=== PATIENT | male | born 1965 | race Caucasian/White ===

== ENCOUNTER 2022-08-30 07:59 | Emergency (ER) | payer MEDICARE, MEDICAID, SELFPAY ==
--- NOTE | ~2022-08-30 | XR_ITS ---
XR knee RT min 4V 08/30/2022 08:24 Indication: Right knee pain after twisting injury Procedure: 4 views right knee Comparison: No prior studies for comparison. Findings: There are changes of ACL reconstruction. Small knee effusion. No acute fracture or traumati c malalignment. There is mild patellofemoral compartment osteoarthritis involving the lateral facet. Impression: 1: No acute fracture. 2: Small knee effusion. Reviewed, dictated and finalized at location B. Impression: 1: No acute fracture. 2: Small knee effusion.
[2022-08-30 08:05] VITALS: BP 151/84; PULSE 66; RESP 18; TEMP 36.4; O2SAT 100
--- NOTE | 2022-08-30 09:15 | ED.LOWEXIN ---
HPI - Extremity Injury (Lower) General Chief Complaint: Extremity Injury, Lower Stated Complaint: right leg pain Time Seen by Provider: 08/30/22 08:15 History of Present Illness HPI Narrative: Patient is a 57-year-old male who presents ER with right knee pain. Suffered an injury 3 days ago that caused him to feel a pop in his knee but then felt a second pop yesterday while working on his pool. Denies direct trauma to the knee. No numbness or tingling. Has pain with ambulation. Reports mild swelling. Symptoms are worse with flexion and extension. Related Data Allergies Allergy/AdvReac Type Severity Reaction Status Date / Time No Known Allergies Allergy Verified 08/30/22 08:07 Review of Systems Constitutional: Constitutional: Denies chills and Denies fever(s) Musculoskeletal: Musculoskeletal: Denies myalgias, Reports arthralgias, Reports joint swelling and Denies muscle cramps Integumentary/Breasts: Skin/Breast: Denies pruritus and Denies rash Neurologic: Denies focal weakness and Denies numbness PMFSH Past Medical History Medical History (Updated 08/30/22 @ 09:19 by Joe Jimenez MD) Healthy adult male Surgical History Surgical History (Updated 08/30/22 @ 09:17 by Joe Jimenez MD) No pertinent past surgical history Exam Narrative: GENERAL: Well-appearing, well-nourished, and in no acute distress. HEAD: Normocephalic, atraumatic. EXTREMITIES: Focused exam of the right lower extremity reveals normal range of motion of the right knee with both flexion and extension. Normal varus and valgus stress testing. Negative anterior drawer. Minimal effusion. No tenderness along the anterior joint line or patella. SKIN: Warm, dry, no rash. NEURO: Alert and oriented x3. PSYCH: Normal mood and affect. Course Course Emergency Course: Patient feels he needs some crutches for bearing weight. No redness or swelling to the joint that would indicate infection. Imaging with small effusion. Sean wrap applied. Will treat with anti-inflammatories for home. Recommend follow-up with PCP or orthopedic surgery if symptoms do not improve as he may need further evaluation for meniscal injury. Vital Signs Vital signs: Vital Signs Temperature 97.6 F 08/30/22 08:05 Pulse Rate 66 08/30/22 08:05 Respiratory Rate 18 08/30/22 08:05 Blood Pressure 151/84 H 08/30/22 08:05 Pulse Oximetry 100 08/30/22 08:05 Oxygen Delivery Room Air 08/30/22 08:05 Temperature 97.6 F 08/30/22 08:05 Pulse Rate 66 08/30/22 08:05 Respiratory Rate 18 08/30/22 08:05 Blood Pressure 151/84 H 08/30/22 08:05 Pulse Oximetry 100 08/30/22 08:05 Oxygen Delivery Room Air 08/30/22 08:05 MDM - Extremity Injury (Lower) Imaging Data Radiologist's impression: ITS Impressions Knee X-Ray 08/30/22 08:28 Impression: 1: No acute fracture. 2: Small knee effusion. Discharge Plan Discharge Clinical Impression: Knee sprain Patient Disposition: Home, Self-Care Condition: Stable Instructions: Knee Sprain (ED) Additional Instructions: Use the crutches to bear weight as tolerated. Keep your Sean wrap applied to help with any swelling. Take naproxen for pain. Return the ER if you suffer new injury, you have fever over 100.4 ?F, your knee is red and swollen, you have additional concerns. Prescriptions: New naproxen 375 mg tablet 375 mg PO BID Qty: 14 0RF Follow-up/Referrals: UNKNOWN,DOCTOR [Primary Care Provider] - 1 Week
== END 2022-08-30 09:56 | disposition home or self-care (01) ==
PROVIDERS: Emergency Provider Emergency Medicine; PCP Surgery
DX: S83.91XA Sprain of unspecified site of right knee, initial encounter (principal); X58.XXXA Exposure to other specified factors, initial encounter
CPT/HCPCS: 73564; 99283

== ENCOUNTER 2022-10-31 12:54 | Emergency (ER) | payer MEDICARE, MEDICAID, SELFPAY ==
--- NOTE | ~2022-10-31 | CT_ITS ---
EXAMINATION: CT abdomen pelvis w con DATE: 10/31/2022 15:40 INDICATION: Right lower quadrant abdominal pain. TECHNIQUE: Computed tomography (CT) of the abdomen and pelvis was performed with 100 mL Omnipaque 350 intravenous contrast. Automated exposure control and iterative reconstruction technique were employe d. The dose-length product was 366.41 mGy-cm. COMPARISON: None. FINDINGS: The visualized portions of the lung bases demonstrate mild atelectasis. No pleural effusion . The heart size is normal. No pericardial effusion. The liver and gallbladder are normal. Calcificat ions in the spleen are consistent with old granulomatous disease. The pancreas, adrenal glands, and k idneys are normal. There are no dilated loops of bowel. The appendix is normal. There is a right ingu inal hernia containing fat. There are no pathologically enlarged lymph nodes. There is no free intrap eritoneal fluid. Aortic atherosclerosis is noted. There is mild lumbar spondylosis. IMPRESSION: 1. Right inguinal hernia containing fat. Reviewed, dictated and finalized at location E.
[2022-10-31 13:04] VITALS: BP 132/86; PULSE 79; RESP 18; TEMP 36.4; O2SAT 98
[2022-10-31 14:31] VITALS: BP 126/85; PULSE 57; RESP 17; O2SAT 98
[2022-10-31 15:04] LABS: Basophils Percent Auto 0.5 % (0.2-1.2); Eosinophils Absolute Auto 0.1 K/mm3 (0-0.3); Eosinophils Percent Auto 0.6 % (0-4.4); Hematocrit 44.9 % (42.0-52.0); Immature Granulocyte Absolute 0.03 K/mm3 (0.00-0.031); Immature Granulocyte Percent A 0.3 % (0-0.5); Lymphocytes Absolute Auto 3.11 K/mm3 (0.9-3.2); Lymphocytes Percent Auto 35.9 % (18.3-44.2); Mean Corpuscular HGB Conc 33.4 g/dl (32-36); Mean Corpuscular Hemoglobin 30.2 pg (26-34); Mean Corpuscular Volume 90.5 fl (80-100); Mean Platelet Volume 10.6 fl (7.4-10.4); Monocytes Absolute Auto 0.6 K/mm3 (0.1-0.6); Monocytes Percent Auto 6.5 % (2.6-8.5); Neutrophils Absolute Auto 4.9 K/mm3 (1.3-6.7); Neutrophils Percent Auto 56.2 % (45.5-73.1); Platelet Count Result 189 k/mm3 (150-375); Red Blood Count 4.96 M/mm3 (4.6-6.20); Red Cell Distribution Width 12.5 % (11.5-14.5); White Blood Count 8.7 K/mm3 (4.5-10.0)
[2022-10-31 15:06] LABS: Appearance Urine Clear (Clear); Bilirubin Urine Negative (Negative); Blood Urine Negative (Negative); Color Urine Yellow (Yellow); Glucose Urine UA Negative (Negative); Ketones Urine Negative (Negative); Leukocyte Esterase Ur Negative LEU/UL (Negative); Nitrate Urine Negative (Negative); Protein Urine Negative (Negative); Specific Grav Ur 1.013 (1.001-1.035); Urobilinogen Urine 0.2 mg/dL (<2.0)
[2022-10-31 15:08] LABS: Alanine Aminotransferase 39 U/L (6-50); Albumin Level 4.5 g/dL (3.5-5.1); Alkaline Phosphatase 56 U/L (38-126); Anion Gap 5 mmol/L (8-16); Aspartate Amino Transferase 48 U/L (17-59); Bilirubin,Total 0.5 mg/dL (0.2-1.3); Blood Urea Nitrogen 12 mg/dL (9-20); Calcium 8.9 mg/dL (8.4-10.2); Carbon Dioxide 27 mmol/L (22-30); Chloride 105 mmol/L (98-107); Estimated CRCL calculation 98 ml/min; Estimated Glomerular Filt Rate > 60; Glucose 83 mg/dL (65-110); Lipase 1033 U/L (23-300); Sodium 137 mmol/L (137-145)
[2022-10-31 15:23] LABS: Add Urine Microscopic? NO
--- NOTE | 2022-10-31 15:58 | ED.ABDPAIN ---
HPI - Abdominal Pain General Chief Complaint: Abdominal Pain Stated Complaint: R GROIN PAIN X4D Time Seen by Provider: 10/31/22 14:51 History of Present Illness HPI narrative: This is a 57-year-old male with past history of HIV (undetectable viral load and CD4 count in the thousands) and hep C who presents the emergency department complaining of painful right groin mass for the past 4 days. The patient is not sure what may have caused the mass, though it is tender and worsens with cough. He suspects he has a hernia. He is able to pass gas and have bowel movements without difficulty. Related Data Home Medications Medication Instructions Recorded Confirmed cabotegravir ER 600 mg/3 See Rx Instructions IM .COMPLEX 09/04/22 09/04/22 mL-rilpivirine ER 900 mg/3mL IM suspension,ER (Cabenuva) entecavir 1 mg tablet 1 mg PO DAILY 09/04/22 09/04/22 Allergies Allergy/AdvReac Type Severity Reaction Status Date / Time No Known Allergies Allergy Verified 10/31/22 14:33 Review of Systems Review of Systems: CONSTITUTIONAL: Denies fever, chills, or sweats. CARDIOVASCULAR: Denies chest pain, palpitations, or edema. RESPIRATORY: Denies cough or dyspnea. GASTROINTESTINAL: Right lower quadrant abdominal pain denies nausea, vomiting, or diarrhea. GENITOURINARY: Denies dysuria or hematuria. SKIN: Denies rash or itching. MUSCULOSKELETAL: Denies back pain, joint pain, or myalgia. NEUROLOGIC: Denies headache, numbness, dizziness, or weakness. PSYCHIATRIC: Denies anxiety or depression. 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 HEAD: Normocephalic, atraumatic. EYES: PERRLA and EOMI. CHEST: Clear to auscultation. No respiratory distress. No wheezes rales or rhonchi HEART: Regular rate and rhythm. No murmur heard. Normal peripheral pulses. ABDOMEN: Abdomen soft; soft, tender mass in the right lower quadrant and right groin with out overlying erythema or induration consistent with inguinal hernia, nondistended, normal active bowel sounds. EXTREMITIES: Normal range of motion. No edema. SKIN: Warm, dry, no rash. NEURO: No focal deficits. Alert and oriented x3. PSYCH: Normal mood and affect. Course Course Emergency Course: 16:01 - CT demonstrates a right inguinal hernia containing fat without changes concerning for strangulation or infection. The patient's vital signs are within normal limits. CBC is unremarkable. Chemistries demonstrate an elevated lipase to 1033, but are otherwise unremarkable. Patient is primarily interested in a referral to general surgery. Will discharge with pain medications and referral. Discussed return and emergency precautions including signs/symptoms of acute abdomen and intractable vomiting. The patient voiced understanding and is comfortable with the plan. All questions answered to his satisfaction. Vital Signs Vital signs: Vital Signs Temperature 97.6 F 10/31/22 13:04 Pulse Rate 79 10/31/22 13:04 Respiratory Rate 18 10/31/22 13:04 Blood Pressure 132/86 10/31/22 13:04 Pulse Oximetry 98 10/31/22 13:04 Oxygen Delivery Room Air 10/31/22 13:04 Temperature 97.6 F 10/31/22 13:04 Pulse Rate 57 L
[2022-10-31 16:13] VITALS: BP 120/80; PULSE 60; RESP 18; O2SAT 98
== END 2022-10-31 16:14 | disposition home or self-care (01) ==
PROVIDERS: Emergency Medicine; Emergency Provider Preventive Medicine Aerospace Medicine
DX: K40.90 Unilateral inguinal hernia, without obstruction or gangrene, not specified as recurrent (principal); R10.31 Right lower quadrant pain; F17.290 Nicotine dependence, other tobacco product, uncomplicated; B20 Human immunodeficiency virus [HIV] disease
CPT/HCPCS: 36415; 74177; 80053; 81003; 83690; 85025; 99284; Q9967

== ENCOUNTER 2022-11-23 07:44 | Outpatient (CLI) | payer MEDICARE, MEDICAID, SELFPAY ==
--- NOTE | 2022-11-23 07:57 | ECG_ITS ---
Measurements Intervals [place] Rate: 57 P: 44 SC: 150 QRS: 70 QRSD: 108 T: 48 QT: 375 QTc: 365 Interpretive Statements SINUS BRADYCARDIA NO PREVIOUS ECG AVAILABLE FOR COMPARISON Electronically Signed On 11-23-2022 10:18:53 CDT by Vibha Daley M.D.
[2022-11-23 08:30] LABS: INR 0.9; Prothrombin Time 12.8 Seconds (11.1-14.7)
== END 2022-11-23 07:45 | disposition home or self-care (01) ==
LOC: ANHSURGERY 07:50
PROVIDERS: Anesthesiology; Visit Provider Surgery
DX: Z01.818 Encounter for other preprocedural examination (principal); R00.1 Bradycardia, unspecified; K40.90 Unilateral inguinal hernia, without obstruction or gangrene, not specified as recurrent; B19.10 Unspecified viral hepatitis B without hepatic coma; F17.210 Nicotine dependence, cigarettes, uncomplicated
CPT/HCPCS: 36415; 85610; 85730; 86850; 86900; 86901; 93005

== ENCOUNTER 2022-11-29 01:36 | Day surgery (SDC) | payer MEDICARE, MEDICAID, SELFPAY ==
[2022-11-20 14:56] VITALS: BMI 22.8
--- NOTE | 2022-11-20 15:04 | PC.NURSE ---
Report to the Outpatient Waiting Room, entrance under the green pavilion located off [facility], at time 12:00 on date 11/29/22. Planned Procedure Time: 2:00. Time changes happen often and if your time is changed the preop area will call you the afternoon before. - You and your visitor will be asked to self-screen and do not enter if you have any COVID symptoms. - A mask is optional within the hospital at this time. Patients may have clear liquids (water, carbonated beverages, clear teas, apple juice) until 3 hours prior to surgery (11:00) with a maximum of 20 ounces. - No food from midnight until time of surgery Take the following medications with a SIP of water the morning of surgery: ENTECAVIR, PAIN PILL IF NEEDED DO NOT STOP ANY OF YOUR OTHER PRESCRIPTION MEDICATIONS PRIOR TO SURGERY ?EXCEPT THE FOLLOWING Medications to discontinue per physician: N/A Date to take last dose: N/A Please no make-up, nail albanian, hairspray, perfume, deodorant, or body powder the day of surgery. No jewelry (including any body piercings) or valuables the day of surgery, leave them at home. Please take a shower or bath the night before, or the morning of, surgery with an antibacterial soap (HIBICLENS). Wear comfortable, loose fitting clothing. - Jewelry must be removed prior to entering the operating room. Rings and piercings that are not removed may be cut off. - The hospital will not accept responsibility for valuables. - Please leave all valuables, including medications, at home the day of surgery. If you are going home after surgery, a licensed armored truck driver must drive you home. - NO public transportation without another adult if you receive anesthesia. - We recommend that an adult stay with you for 24 hours following discharge. - We also recommend that you do not drive, make important decision, drink alcoholic beverages, or take any drugs that were not prescribed by your health care provider for at least 24 hours after your discharge time. Follow any additional instructions given to you from your surgeon. If you or anyone in your household have experienced Covid symptoms in the past week, please notify your surgeon or the nurse liaison at the phone number below for possible testing. Telephone instructions given to PT - CLARIBEL WAKEFIELD and asked if any additional questions and then verbalized understanding. Patient advised to call surgeon office or pre surgery nurse liaison [phone] if any additional questions.
[2022-11-29] VITALS (9 sets, daily range): BP systolic 113–151; BP diastolic 62–93; PULSE 47–75; RESP 12–19; TEMP 36.3–36.9; O2SAT 96–99
[2022-11-29] MEDS: ACETAMINOPHEN 500 MG TABLET 1000 MG PO (08:20)
[2022-11-29] MEDS: LACTATED RINGERS 1,000 ML 30 ML IV CONT ×2 (08:20→11:11)
[2022-11-29] MEDS: KETOROLAC 15 MG/ML VIAL (*BKC) IV PUSH (08:20)
--- NOTE | 2022-11-29 08:21 | WPDANESEPPF ---
Anes - Initial Pre Proc Eval Procedure: Operation Date: 11/29/22 09:30 Proposed Procedures p Laparoscopic Right Inguinal Hernia Repair with Mesh, Davinci Assisted - Ferdinand Trejo DO Date/Time: 11/29/22 08:21 Surgeon: Ferdinand Trejo DO Pre Op Diagnosis: right Inguinal Hernia Patient Data Age: 57 Gender: M Height: 1.73 m Weight: 68.1 kg Allergies Allergy/AdvReac Type Severity Reaction Status Date / Time No Known Allergies Allergy Verified 11/20/22 14:55 Home Medications Medication Instructions Recorded Confirmed Type cabotegravir ER 600 mg/3 See Rx Instructions IM .COMPLEX 09/04/22 11/20/22 History mL-rilpivirine ER 900 mg/3mL IM suspension,ER (Cabenuva) entecavir 1 mg tablet 1 mg PO DAILY 09/04/22 11/20/22 History hydrocodone 5 mg-acetaminophen 325 1 tablet PO Q4H PRN pain #15 tabs 11/17/22 11/17/22 Rx mg tablet Patient hx anesthesia problems: none Family hx anesthesia problems: none Results Review: All pre-operative results and documents have been reviewed as part of the pre-operative evaluation. 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 Informed Consent: The patient's anesthetic plan and its attendant risks and benefits were discussed with the patient/family/POA. Questions were solicited and answers provided to the satisfaction of the patient/family/POA.
--- NOTE | 2022-11-29 08:53 | WPDHPUPDATE1 ---
History and Physical Update Update Date/Time: 11/29/22 08:53 History and Physical has been reviewed, including an updated exam of the patient. There are NO changes in the patient's condition. Risks, benefits, and alternatives have been discussed and questions answered. Patient agrees to proceed with procedure.
[2022-11-29] MEDS: ceFAZolin 2 GM/D5W 50 ML 2 GM/50 ML BAG IVPB (09:35)
[2022-11-29] MEDS: BUPIVACAINE/EPINEPHRINE 0.25% 10 ML VIAL 30 ML INFILTRATE (10:02)
--- NOTE | 2022-11-29 10:54 | W.PM.PROC2 ---
Procedure Note - Detailed Date of Procedure 11/29/22 Pre-op Diagnosis right Inguinal Hernia Post-op Diagnosis Other (Direct right inguinal hernia and indirect left inguinal hernia) Procedure Performed Laparoscopic bilateral inguinal hernia repair with mesh, da Pablo assisted Surgeon Ferdinand Trejo, DO Anesthesia General and Local (0.5% bupivacaine with epinephrine) Indications This is a 57-year-old man who presented with right inguinal pain that started about 1 month ago. He noticed a bulge is well. He underwent a CT of his abdomen and pelvis that showed evidence of a fat containing right inguinal hernia. Discussions were made with the patient about treatment options and decision was made to proceed with robotic assisted laparoscopic right inguinal hernia repair with mesh. Findings Upon inspecting the abdomen laparoscopically, the patient was found to have a direct right inguinal hernia and also had an indirect left inguinal hernia. The right inguinal hernia was slightly larger than the left. Decision was made to proceed with bilateral inguinal hernia repair. A robotic transabdominal preperitoneal approach was utilized. A wide preperitoneal pocket was created on each side and the hernia sacs were reduced. Large 3DMax mid mesh were then placed overlying the entire myopectineal orifice on each side. Description of Procedure Procedure as well as risks, benefits, and alternatives were discussed with the patient. Written consent was obtained and placed in chart prior to procedure. Patient was brought back to surgical suite. He was placed supine on operating table. Time-out was done to confirm patient and procedure. He was then intubated by Anesthesia Department. His abdomen was prepped and draped in sterile fashion using chlorhexidine prep. 0.5% bupivacaine with epinephrine was infiltrated at each location for incision. A 12 millimeter transverse incision was made just superior to the umbilicus using a 15 blade scalpel. Blunt dissection was carried out down to the linea alba. A vertical incision was made at the linea alba using a 15 blade scalpel. The peritoneum was then bluntly entered. A 12 millimeter trocar was inserted and carbon dioxide insufflation was used to create a pneumoperitoneum. A camera was inserted and the abdominal cavity was inspected. The patient was placed in slight Trendelenburg position. An 8 millimeter incision was made on the right lateral abdomen and an 8 millimeter trocar was inserted under direct visualization. Another 8 millimeter incision was made in the left lateral abdomen and an 8 millimeter trocar was inserted under direct visualization. The robotic arms were brought up to the patient's bedside and secured to the ports. The camera and instruments were inserted. I then moved over to the robotic console and took control of the camera and instruments. After careful inspection of the abdominal cavity, I began scoring the peritoneum along the right lower quadrant using scissors with electrocautery. The preperitoneal plane was entered and this was carefully dissected caudally along the inferior epigastric vessels. Careful dissection with scissors with electrocautery and blunt dissection was used to continue this dissection. I dissected far enough laterally to allow for mesh placement, and also dissected medially to identify the pubic arch and Barrington's ligament. The hernia sac was identified and carefully dissected posteriorly. The cord contents were also identified and the peritoneum was carefully dissected far enough posteriorly to allow for mesh placement. Once an adequate pocket was created, I then placed the mesh within the preperitoneal pocket and carefully unfolded it. The mesh was centered on the hernia defect with adequate overlap circumferentially. The inferior edge of the mesh was inspected to ensure that it was far enough away from the peritoneal edge. The mesh appeared in proper position overlying the ent
[2022-11-29] MEDS: fentaNYL CITRATE INJ (*CRX) 100 MCG/2 ML VIAL 25 MCG IV PUSH ×8 (11:29→12:11)
[2022-11-29] MEDS: oxyCODONE HCL (*CRX) 5 MG TAB IR PO (12:36)
--- NOTE | 2022-11-29 13:04 | SUR.PHASEII ---
1255: Patient dressed self. IV dc'd. DC instructions reviewed and paperwork signed. waiting on patient ride to arrive.
== END 2022-11-29 13:25 | disposition home or self-care (01) ==
PROVIDERS: Visit Provider Surgery
PROC: 8E0Y4CZ Robotic Assisted Procedure of Lower Extremity, Percutaneous Endoscopic Approach (ICD-10-PCS; CPT 49650; principal; 2022-11-29 09:30)
DX: K40.20 Bilateral inguinal hernia, without obstruction or gangrene, not specified as recurrent (principal); Z21 Asymptomatic human immunodeficiency virus [HIV] infection status; Z79.899 Other long term (current) drug therapy; F17.210 Nicotine dependence, cigarettes, uncomplicated; F12.90 Cannabis use, unspecified, uncomplicated
CPT/HCPCS: 49650; S2900; 36415; 85610; 85730; 86850; 86900; 86901; 93005; A9270; C1781; J0330; J0690; J1100; J1885; J2250; J2405; J2704; J3010; J7120

== ENCOUNTER → 2022-12-27 13:24 | Outpatient (CLI) | payer MEDICARE, MEDICAID, SELFPAY ==
--- NOTE | ~2022-12-27 | CT_ITS ---
EXAMINATION: CT lung screening DATE: 12/27/2022 13:34 INDICATION: Personal history nicotine dependence, current smoker with 39 pack year history TECHNIQUE: Computed tomography (CT) of the chest was performed without intravenous contrast. The dose -length product (DLP) was 64.58 mGy-cm. Automated exposure control and iterative reconstruction techn Zighraue were employed. COMPARISON: None FINDINGS: There is a 6 mm nodule of the right lower lobe on image 89. There is also a 4 mm nodule of the right lower lobe on image 89. There are 4 mm nodules of the right upper lobe on images 68 and 69. There is moderate emphysema. No pleural effusion or pneumothorax. Mild dependent atelectasis is note d. No pathologically enlarged thoracic lymph nodes are identified. The heart size is normal. Calcifie d pulmonary nodules and calcified right hilar lymph nodes are consistent with old granulomatous disea se. There is mild thoracic spondylosis. IMPRESSION: 1. Lung-RADS category 3: Probably benign. Followup with noncontrast low-dose chest CT in 6 months is recommended. Reviewed, dictated and finalized at location L. IMPRESSION: 1. Lung-RADS category 3: Probably benign. Followup with noncontrast low-dose ch est CT in 6 months is recommended.
== END ==
PROVIDERS: PCP Physician Assistant; Visit Provider Physician Assistant
DX: Z12.2 Encounter for screening for malignant neoplasm of respiratory organs (principal); Z87.891 Personal history of nicotine dependence
CPT/HCPCS: 71271